=== PATIENT | male | born 1970 | race Caucasian/White ===

== ENCOUNTER 2022-06-09 08:45 | Day surgery (SDC) | payer BC, SELFPAY ==
[2022-06-09 09:20] VITALS: BP 111/65; PULSE 58; RESP 16; TEMP 36.6; O2SAT 97; BMI 24.1
[2022-06-09] MEDS: Lactated Ringers 1,000 ML 15 ML IV (09:23)
--- NOTE | 2022-06-09 09:50 | H&P.OPEN ---
HPI - General HPI Narrative MAKAYLA ACOSTA, is a 52 M who presents for screening colonoscopy. Patient has never had a colonoscopy in the past. He denies any abdominal pain or family history of colon cancer. He denies being in any blood thinners. [facility] Medical History (Updated 06/05/22 @ 12:56 by Ana Kraus) Afib Alcohol use Bradycardia Cardiology follow-up encounter Depression History of echocardiogram History of stress test Migraine Non-smoker Wears glasses Home Medications aspirin 81 mg tablet,delayed release (Adult Low Dose Aspirin) 81 mg PO DAILY HEART HEALTH 05/16/22 [History Last Taken 06/09/22] metoprolol succinate 25 mg tablet,extended release 24 hr 12.5 mg PO DAILY AFIB 05/16/22 [History Last Taken 06/09/22] multivitamin 1 tab PO DAILY SUPPLEMENT 05/16/22 [History Last Taken Unknown] sertraline 25 mg tablet 25 mg PO DAILY DEPRESSION 05/16/22 [History Last Taken Unknown] sumatriptan succinate 25 mg tablet See Rx Instructions PO .COMPLEX 05/16/22 [History Last Taken Unknown] Allergy/AdvReac Type Severity Reaction Status Date / Time No Known Allergies Allergy Verified 06/09/22 09:20 Family History (Updated 05/16/22 @ 09:03 by Merced Hayes) Unknown Colon cancer Mother Melanoma Surgical History (Updated 06/05/22 @ 12:55 by Ana Kraus) History of vasectomy History of wisdom tooth extraction Social History (Updated 05/16/22 @ 09:06 by Merced Hayes) household members: spouse current occupational status: employed current occupation: [employer] Smoking Status: Never smoker Past Medical/Surgical History Planned Operation Planned Operative Procedure/s: COLONOSCOPY Previous Hospitalizations/Surgeries HX Hospitalizations: No Any Problems With Anesthesia: No You/Your Family Experience Fever (Hyperthermia) With Anes: No Cholinesterase deficiency: No Cardiovascular Hx Hypertension: No Respiratory Hx Sleep Apnea: No Hx Respiratory Tract Infection/Cold (presently): No Do You Snore Loudly (louder than talking or can be heard): No Do You Often Feel Tired/ Fatigued/ Sleepy Dring Daytime?: No Has Anyone Observed You Stop Breathing During Sleep?: No Result (for STOP score): Negative Smoking Status: Never smoker Neurological Does patient have nerve stimulator: No Miscellaneous Recent Exposure to Contagious Disease: No Allergies No Known Allergies Allergy (Verified 06/09/22 09:20) Discharge Is Pt Admitted From a Senior Living, or a Nursing Home: No Who Could Help: FAMILY After D/C, Where Do you Plan to Go: Return Home Vital Signs Vital Signs Vital Signs: 06/09/22 09:20 06/09/22 09:20 Temperature 97.8 F Temperature Source Temporal Pulse Rate 58 L Respiratory Rate 16 Respiratory Pattern Normal Blood Pressure 111/65 Blood Pressure Mean 80 Blood Pressure Source Monitor Blood Pressure Position Semi-Fowlers Blood Pressure Location Right Arm Pulse Ox 97 Oxygen Delivery Method Room Air Weight Weight: 173 lb Body Mass Index (BMI) 24.1 Physical Exam Const alert and oriented x3 Resp normal respiratory effort and normal air movement Cardio regular rate and regular rhythm GI soft to palpation, non-tender and non-distended Assessment & Plan Assessment/Plan (1) Encounter for screening for malignant neoplasm of colon: PLAN: I explained endoscopy in detail to the patient. I explained the risks including but not limited to stroke or heart attack with anesthesia, perforation of the GI tract, bleeding, infection. I explained that any of these could necessitate further emergency surgery. The patient understands and all questions were answered sufficiently. The patient wishes to proceed with procedure. Ramirez Cao MD Pager: [facility] [address] [place] [address], [address] [place] [address] Office: Surgery Risks - Colonoscopy Risks Include but are not Limited To: Risks include but are not limited to: Bleeding, perforation requiring further surgery, inability to complete colonoscopy requiring barium enema.
[2022-06-09 10:20] VITALS: BP 111/65; BP 87/60; PULSE 54; RESP 16; TEMP 36.4; O2SAT 99
--- NOTE | 2022-06-09 10:21 | OP.COLON_ITS ---
Patient Name: Ghassan Robert Procedure Date: 06/09/2022 9:52 AM Date of : 1970 Age: 52 Procedure: Colonoscopy Indications: Screening for colorectal malignant neoplasm Providers: Ramirez Cao MD Medicines: Monitored Anesthesia Care Patient Profile: This is a 52 year old male. Refer to note in patient chart for documentation of history and physical. Last Colonoscopy: none. The patient's first colonoscopy is today. Complications: No immediate complications. Procedure: Pre-Anesthesia Assessment: - Prior to the procedure, a History and Physical was performed, and patient medications and allergies were reviewed. The patient's tolerance of previous anesthesia was also reviewed. The risks and benefits of the procedure and the sedation options and risks were discussed with the patient. All questions were answered, and informed consent was obtained. Prior Anticoagulants: The patient has taken no previous anticoagulant or antiplatelet agents. After reviewing the risks and benefits, the patient was deemed in satisfactory condition to undergo the procedure. After I obtained informed consent, the scope was passed under direct vision. Throughout the procedure, the patient's blood pressure, pulse, and oxygen saturations were monitored continuously. The Colonoscope was introduced through the anus and advanced to the cecum, identified by appendiceal orifice and ileocecal valve. The colonoscopy was performed without difficulty. The patient tolerated the procedure well. The quality of the bowel preparation was good. Scope In: 9:59:24 AM Scope Withdrawal Time 0 hours 6 minutes 7 seconds Scope Out: 10:14:18 AM Total Procedure Duration Time 0 hours 14 minutes 54 seconds Findings: The entire examined colon appeared normal on direct and retroflexion views. Impression: - The entire examined colon is normal on direct and retroflexion views. - No specimens collected. Recommendation: - Discharge patient to home. - Resume previous diet. - Continue present medications. - Repeat colonoscopy in 10 years for screening purposes. Procedure Code(s): --- Professional --- 86627, Colonoscopy, flexible; diagnostic, including collection of specimen(s) by brushing or washing, when performed (separate procedure) Diagnosis Code(s): --- Professional --- Z12.11, Encounter for screening for malignant neoplasm of colon CPT copyright 2017 [employer]. All rights reserved. The codes documented in this report are preliminary and upon aircraft armorer review may be revised to meet current compliance requirements. Ramirez Cao MD 06/09/2022 10:21:30 AM This report has been signed electronically. Number of Addenda: 0 Note Initiated On: 06/09/2022 9:52 AM
[2022-06-09 10:25] VITALS: BP 111/65; BP 92/62; PULSE 55; RESP 16; O2SAT 99
[2022-06-09 10:30] VITALS: BP 111/65; BP 89/55; PULSE 56; RESP 16; O2SAT 98
[2022-06-09 10:35] VITALS: BP 111/65; BP 94/62; PULSE 54; RESP 16; TEMP 36.4; O2SAT 100
== END 2022-06-09 11:03 | disposition home or self-care (01) ==
LOC: EN 08:49 → AC 08:50
PROVIDERS: PCP Family Medicine; Referring Provider Family Medicine; Visit Provider Surgery
PROC: 0DJD8ZZ Inspection of Lower Intestinal Tract, Via Natural or Artificial Opening Endoscopic (ICD-10-PCS; CPT 45378; principal; 2022-06-09 09:40)
DX: Z12.11 Encounter for screening for malignant neoplasm of colon (principal); Z79.82 Long term (current) use of aspirin
CPT/HCPCS: 45378; J7120; J2405

== ENCOUNTER → 2024-01-23 | Outpatient (CLI) | payer BC, SELFPAY ==
[2024-01-23 10:25] LABS: Absolute Lymphocyte Count 1.66 X10^3/uL (0.83-4.51); Absolute Neutrophil Count 4.6 X10^3/uL (2.0-7.7); Basophil# 0.02 X10^3/uL; Basophil% 0.3 % (0-1); Eosinophil# 0.09 X10^3/uL; Eosinophils% 1.3 % (0-5); Hematocrit 45.9 % (40-54); Lymphocyte # 1.66 X10^3/ul (0.83-4.51); Mean Corp Hgb Conc 32.7 g/dL (32-36); Mean Corpuscular Hgb 29.5 pg (27.0-32.0); Mean Corpuscular Volume 90.2 fL (80-94); Mean Platelet Vol. 10.1 fl (6.2-12.0); Monocyte# 0.57 X10^3/uL; Monocyte% 8.2 % (0-10); NRBC Flagged by Analyzer 0 % (0-5); Neutrophil # 4.57 X10^3/uL (2.7-7.7); Neutrophil % 65.9 % (47-70); Platelet Count 271 K/mm3 (150-450); RBC Distribution Width CV 12.5 % (11.6-14.6); RBC Distribution Width SD 41.7 fl (35.1-43.9); Red Blood Count 5.09 M/mm3 (4.6-6.2); White Blood Count 6.9 K/mm3 (4.4-11.0)
[2024-01-23 12:00] LABS: ALB/GLOB Ratio 1.1 RATIO (0.9-2.4); AST(SGOT) 25 U/L (15-37); Alanine Aminotransfer ALT/SGPT 31 U/L (16-61); Albumin, Serum 3.9 g/dL (3.2-5.0); Alkaline Phosphatase 42 U/L (45-117); Anion Gap 10 (5-15); BUN 11 mg/dL (7-18); BUN/Creat Ratio 11.6 RATIO (10-20); Calcium,Total 9.6 mg/dL (8.5-10.1); Chloride 103 mmol/L (98-107); Cholesterol 197 mg/dL (200); Creatinine, Serum 0.95 mg/dL (0.70-1.30); EST Glomerular Filtration Rate 88 mL/min (>60); Est Glom Filt Rate - Afr Amer 107 mL/min (>60); Globulin 3.6 g/dL (2.2-4.2); Glucose 96 mg/dL (74-106); High Density Lipoprotein 73 mg/dL; Potassium 4.3 mmol/L (3.5-5.1); Protein, Total 7.5 g/dL (6.4-8.2); Sodium Level 139 mmol/L (136-145); Thyroid Stim Hormone (TSH) 1.78 uIU/mL (0.358-3.74); Triglycerides 64 mg/dL; Very Low Density Lipoprotein 13 mg/dL (5-40)
== END | disposition home or self-care (01) ==
PROVIDERS: PCP Family Medicine; Referring Provider Family Medicine; Visit Provider Family Medicine
DX: Z00.00 Encounter for general adult medical examination without abnormal findings (principal); F32.A Depression, unspecified; R53.83 Other fatigue
CPT/HCPCS: 36415; 80053; 80061; 84443; 85025

== ENCOUNTER → 2025-03-06 | Outpatient (CLI) | payer BC, SELFPAY ==
[2025-03-06 18:01] LABS: Hematocrit 40.8 % (40-54); Hemoglobin 13.8 g/dL (13.0-16.5); Immature Granulocytes Count 0.030 X10^3/uL (0.0-0.0); Mean Corp Hgb Conc 33.8 g/dL (32-36); Mean Corpuscular Volume 90.5 fL (80-94); Mean Platelet Vol. 9.9 fl (6.2-12.0); NRBC Flagged by Analyzer 0 % (0-5); Platelet Count 249 K/mm3 (150-450); RBC Distribution Width CV 12.7 % (11.6-14.6); RBC Distribution Width SD 42.2 fl (35.1-43.9); Red Blood Count 4.51 M/mm3 (4.6-6.2); White Blood Count 6.2 K/mm3 (4.4-11.0)
[2025-03-06 18:24] LABS: AST(SGOT) 27 U/L (<=37); Alanine Aminotransfer ALT/SGPT 16 U/L (<=46); Albumin, Serum 4.3 g/dL (3.5-5.0); Alkaline Phosphatase 42 U/L (40-129); Anion Gap 10 (5-15); BUN 16 mg/dL (4-19); BUN/Creat Ratio 17.1 RATIO (10-20); Calcium,Total 9.1 mg/dL (7.6-11.0); Carbon Dioxide 26.6 mmol/L (21.0-32.0); Chloride 98 mmol/L (98-108); Globulin 2.4 g/dL (2.2-4.2); Glucose 99 mg/dL (70-99); Potassium 4.2 mmol/L (3.3-5.1)
== END | disposition home or self-care (01) ==
LOC: MTLAB 16:39
PROVIDERS: PCP Family Medicine; Referring Provider Family Medicine; Visit Provider Family Medicine
DX: I48.91 Unspecified atrial fibrillation (principal)
CPT/HCPCS: 36415; 80053; 85025